=== PATIENT | male | born 1995 | race Caucasian/White ===

== ENCOUNTER 2017-02-04 17:25 | Emergency (ER) | payer SELFPAY | END 2017-02-04 17:55 | disposition home or self-care (01) | LOC: ER 17:25 | DX: S49.92XA Unspecified injury of left shoulder and upper arm, initial encounter (principal); S99.922A Unspecified injury of left foot, initial encounter; R21 Rash and other nonspecific skin eruption; Z88.0 Allergy status to penicillin; V89.2XXA Person injured in unspecified motor-vehicle accident, traffic, initial encounter | CPT/HCPCS: 71010; 73030-LT; 73630-LT; 96372; 99284; J1170 ==